=== PATIENT | female | born 1985 | race Asian ===

== ENCOUNTER 2018-05-27 23:22 | Emergency (ER) | payer BC ==
[2018-05-28 00:20] LABS: CHLORIDE,CL 106 mmol/L (98-107); SODIUM,NA 141 mmol/L (136-145)
[2018-05-28 00:21] LABS: ANION GAP 13.8 mmol/L (10-20)
[2018-05-28] MEDS ORDERED: Take Home: Sulfamethoxazole/Trimethoprim 800-160 MG Tab, 2 Tab Pack PO ONE (00:48)
--- NOTE | 2018-05-28 06:28 | EDM.PDOC ---
ED HPI GENERAL MEDICAL PROBLEM - General Chief Complaint: Chest Pain Stated Complaint: hypertension, chest pain Time Seen by Provider: 05/27/18 23:30 Source of Information: Reports: Patient History Limitations: Reports: No Limitations - History of Present Illness INITIAL COMMENTS - FREE TEXT/NARRATIVE: Pt. presents to ER with complaints of myalgias, dysuria, and lower abdominal pain. States that the symptoms started today. She also is experiencing dysuria and urinary frequency. Denies any fever or chills. She complains of L lateral and anterior chest wall pain, worse when she takes a deep breath. Denies any cough. No sore throat. No skin rashes. Denies any lightheadedness. No nausea, vomiting, or diarrhea. She has some mild lightheadedness. Onset: Today Onset Date: 05/27/18 Duration: Constant, Getting Worse Location: Reports: Chest, Generalized Quality: Reports: Ache Severity: Moderate Improves with: Reports: Rest Worsens with: Reports: Movement Context: Denies: Sick Contact, Trauma Associated Symptoms: Reports: Chest Pain, Fever/Chills, Weakness. Denies: Cough Chest Pain Score (Numeric/FACES): 4 - Related Data Allergies Allergy/AdvReac Type Severity Reaction Status Date / Time nitrofurantoin Allergy Other Verified 05/27/18 23:23 [From Macrobid] Home Meds: Home Meds . 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: Polycystic Ovaries Social & Family History - Tobacco Use Smoking Status *Q: Never Smoker ED ROS GENERAL - Review of Systems Review Of Systems: See Below Constitutional: Reports: Fever, Chills, Malaise, Fatigue HEENT: Reports: No Symptoms Respiratory: Reports: Pleuritic Chest Pain Cardiovascular: Reports: No Symptoms Endocrine: Reports: No Symptoms GI/Abdominal: Reports: Abdominal Pain : Reports: Dysuria, Frequency, Urgency Musculoskeletal: Reports: Joint Pain, Muscle Pain Skin: Reports: No Symptoms Neurological: Reports: No Symptoms Psychiatric: Reports: No Symptoms Hematologic/Lymphatic: Reports: No Symptoms Immunologic: Reports: No Symptoms ED EXAM, GENERAL - Physical Exam Exam: See Below Exam Limited By: No Limitations General Appearance: Alert, WD/WN, No Apparent Distress Nose: Normal Inspection, Normal Mucosa, No Blood Throat/Mouth: Normal Inspection, Normal Lips, Normal Teeth, Normal Gums, Normal Oropharynx, Normal Voice, No Airway Compromise Head: Atraumatic, Normocephalic Neck: Normal Inspection, Supple, Non-Tender, Full Range of Motion Respiratory/Chest: No Respiratory Distress, Lungs Clear, Normal Breath Sounds, No Accessory Muscle Use, Other (lateral and anterior chest tender to palpation) Cardiovascular: Normal Peripheral Pulses, Regular Rate, Rhythm, No Edema, No Gallop, No JVD, No Murmur, No Rub Peripheral Pulses: 3+: Radial (L), Radial (R) GI/Abdominal: Normal Bowel Sounds, Soft, Non-Tender, No Organomegaly, No Distention, No Abnormal Bruit, No Mass (Female) Exam: Deferred Rectal (Female) Exam: Deferred Back Exam: Normal Inspection, Full Range of Motion. No: CVA Tenderness (L), CVA Tenderness (R) Extremities: Normal Inspection, Normal Range of Motion, Non-Tender, No Pedal Edema, Normal Capillary Refill Neurological: Alert, Oriented, CN II-XII Intact, Normal Cognition, Normal Gait, Normal Reflexes, No Motor/Sensory Deficits Psychiatric: Normal Affect, Normal Mood Course - Vital Signs Last Recorded V/S: Last Vital Signs Temp 35.9 C 05/27/18 23:23 Pulse 90 05/27/18 23:23 Resp 21 H 05/27/18 23:23 BP 135/83 05/27/18 23:23 Pulse Ox 98 05/27/18 23:23 - Orders/Labs/Meds Orders: Active Orders 24 hr Category Date Time Status Dietary Supplements [RC] BIDMEALS Care 05/28/18 00:48 Active EKG Documentation Completion [RC] STAT Care 05/27/18 23:28 Active Chest 2V [CR] Stat Exams 05/27/18 23:46 Taken Labs: Laboratory Tests 05/27/18 05/27/18 05/27/18 Range/Units 23:48 23:48 23:48 WBC 9.2 (4.0-10.0) x10^3/uL RBC 5.00 (4.00-5.50) x10^6/uL Hgb 14.8 (12.0-16.0) g/dL Hct 43.1 (33.0-47.0) % MCV 86.2 (78.0-93.0) fL MCH 29.6 (26.0-32.0) pg MCHC 34.3 (32.0-36.0) g/dL RDW Coeff of [place] 12.5 (10.0-15.0) % Plt Count 311 (130-400) x10^3/uL Neut % (Auto) 69.6 (50.0-80.0) % Lymph % (Auto) 21.0 L (25.0-50.0) % [place] % (Auto) 7.0 (2.0-11.0) % Eos % (Auto) 2.1 (0.0-4.0) % Baso % (Auto) 0.3 (0.2-1.2) % PT 9.9 (9.6-11.4) SEC INR 0.9 L (2.0-3.5) D-Dimer, Quantitative (<=0.58) mg/LFEU Sodium 141 (136-145) mmol/L Potassium 3.8 (3.5-5.1) mmol/L Chloride 106 (98-107) mmol/L Carbon Dioxide 25 (21-32) mmol/L Anion Gap 13.8 (10-20) mmol/L BUN 10 (7-18) mg/dL Creatinine 0.9 (0.55-1.02) mg/dL Est Cr Clr Drug Dosing TNP Estimated GFR (MDRD) > 60 Glucose 84 (74-106) mg/dL Calcium 9.0 (8.5-10.1) mg/dL Corrected Calcium 9.24 (8.5-10.1) mg/dL Phosphorus 2.2 L (2.6-4.7) mg/dL Magnesium 2.0 (1.8-2.4) mg/dL Total Bilirubin 0.5 (0.2-1.0) mg/dL AST 17 (15-37) U/L ALT 32 (14-59) U/L Alkaline Phosphatase 88 (46-116) U/L Troponin I < 0.017 (<=0.056) ng/mL C-Reactive Protein 1.0 H (<=0.9) mg/dL Total Protein 8.2 (6.4-8.2) g/dL Albumin 3.7 (3.4-5.0) g/dL Globulin 4.5 Albumin/Globulin Ratio 0.82 Urine Color (YELLOW) Urine Appearance (CLEAR) Urine pH (5.0-8.0) Ur Specific [place] Urine Protein (NEGATIVE) mg/dL Urine Glucose (UA) (NEGATIVE) mg/dL Urine Ketones (NEGATIVE) mg/dL Urine Occult Blood (NEGATIVE) Urine Nitrite (NEGATIVE) Urine Bilirubin (NEGATIVE) Urine Urobilinogen (0.2) EU/dL Ur Leukocyte Esterase (NEGATIVE) Urine RBC (NOT SEEN) /HPF Urine WBC (NOT SEEN) /HPF Ur Squamous Epith Cells (NEGATIVE) /HPF Urine Bacteria (NEGATIVE) /HPF Urine Mucus (NEGATIVE) /LPF 05/27/18 05/28/18 Range/Units 23:48 00:20 WBC (4.0-10.0) x10^3/uL RBC (4.00-5.50) x10^6/uL Hgb (12.0-16.0) g/dL Hct (33.0-47.0) % MCV (78.0-93.0) fL MCH (26.0-32.0) pg MCHC (32.0-36.0) g/dL RDW Coeff of [place] (10.0-15.0) % Plt Count (130-400) x10^3/uL Neut % (Auto) (50.0-80.0) % Lymph % (Auto) (25.0-50.0) % [place] % (Auto) (2.0-11.0) % Eos % (Auto) (0.0-4.0) % Baso % (Auto) (0.2-1.2) % PT (9.6-11.4) SEC INR (2.0-3.5) D-Dimer, Quantitative < 0.19 (<=0.58) mg/LFEU Sodium (136-145) mmol/L Potassium (3.5-5.1) mmol/L Chloride (98-107) mmol/L Carbon Dioxide (21-32) mmol/L Anion Gap (10-20) mmol/L BUN (7-18) mg/dL Creatinine (0.55-1.02) mg/dL Est Cr Clr Drug Dosing Estimated GFR (MDRD) Glucose (74-106) mg/dL Calcium (8.5-10.1) mg/dL Corrected Calcium (8.5-10.1) mg/dL Phosphorus (2.6-4.7) mg/dL Magnesium (1.8-2.4) mg/dL Total Bilirubin (0.2-1.0) mg/dL AST (15-37) U/L ALT (14-59) U/L Alkaline Phosphatase (46-116) U/L Troponin I (<=0.056) ng/mL C-Reactive Protein (<=0.9) mg/dL Total Protein (6.4-8.2) g/dL Albumin (3.4-5.0) g/dL Globulin Albumin/Globulin Ratio Urine Color [place] H (YELLOW) Urine Appearance Clear (CLEAR) Urine pH 6.5 (5.0-8.0) Ur Specific [place] 1.010 Urine Protein 100 H (NEGATIVE) mg/dL Urine Glucose (UA) 100 H (NEGATIVE) mg/dL Urine Ketones Trace H (NEGATIVE) mg/dL Urine Occult Blood Negative (NEGATIVE) Urine Nitrite Positive H (NEGATIVE) Urine Bilirubin Moderate H (NEGATIVE) Urine Urobilinogen 4.0 H (0.2) EU/dL Ur Leukocyte Esterase Large H (NEGATIVE) Urine RBC 0-5 (NOT SEEN) /HPF Urine WBC 0-5 (NOT SEEN) /HPF Ur Squamous Epith Cells Moderate H (NEGATIVE) /HPF Urine Bacteria Rare (NEGATIVE) /HPF Urine Mucus Not seen (NEGATIVE) /LPF Meds: Medications Discontinued Medications Generic Name Dose Route Start Last Admin Trade Name Freq PRN Reason Stop Dose Admin Trimethoprim/Sulfamethoxazole 2 packet 05/28/18 00:48 05/28/18 00:58 Take Home: Sulfameth/Trimet 800-160mg, 2 Pack PO 05/28/18 00:49 2 packet ONETIME ONE Administration Departure - Departure Time of Disposition: 00:58 Disposition: Home, Self-Care 01 Condition: Good Clinical Impression: UTI (urinary tract infection) - Discharge Information Instructions: Urinary Tract Infection, Adult Referrals: PCP,Unobtain [Primary Care Provider] - Forms: ED Department Discharge Additional Instructions: Bactrim DS 1 twice daily for 5 days Drink plenty of fluids tylenol and ibuprofen for discomfort Follow-up in clinic in 10-14 days - My Orders Last 24 Hours: My Active Orders 05/27/18 23:28 EKG Documentation Completion [RC] STAT 05/27/18 23:46 Chest 2V [CR] Stat 05/28/18 00:48 Dietary Supplements [RC] BIDMEALS - Assessment/Plan Last 24 Hours: My Active Orders 05/27/18 23:28 EKG Documentation Completion [RC] STAT 05/27/18 23:46 Chest 2V [CR] Stat 05/28/18 00:48 Dietary Supplements [RC] BIDMEALS Plan: Bactrim DS 1 twice daily for 5 days Drink plenty of fluids tylenol and ibuprofen for discomfort Follow-up in clinic in 10-14 days
--- NOTE | 2018-05-29 07:52 | CR ---
[id number] RAD/RAD Chest PA And Lateral EXAM: RAD Chest PA And Lateral CLINICAL DATA: CHEST PAIN COMPARISON: NO PREVIOUS SIMILAR EXAM IS AVAILABLE. FINDINGS: The lungs are clear. The cardiomediastinal contour is normal. The regional bones and soft tissues are unremarkable. IMPRESSION: NO ACUTE PROCESS. Ken Amaod MD 05/29/18 0749 Thank you for allowing us to participate in the care of your patient.
== END 2018-05-28 00:58 | disposition home or self-care (01) ==
LOC: VM.ED 23:22
DX: N39.0 Urinary tract infection, site not specified (principal)
CPT/HCPCS: 36415; 71046; 80053; 81001; 83735; 84100; 84484; 85025; 85379; 85610; 86140; 87086; 87088; 87804; 87804-59; 99285; A9270-GY

== ENCOUNTER 2018-07-22 12:48 | Emergency (ER) | payer BC ==
[2018-07-22] MEDS ORDERED: Sodium Chloride 0.9% 10 ML Syringe FLUSH PRN (13:12)
--- NOTE | 2018-07-22 13:18 | EDM.PDOC ---
ED HPI GENERAL MEDICAL PROBLEM - General Chief Complaint: Chest Pain Stated Complaint: chest pain Time Seen by Provider: 07/22/18 13:00 Source of Information: Reports: Patient - History of Present Illness INITIAL COMMENTS - FREE TEXT/NARRATIVE: Patient comes in the emergency department with complaint of chest pain. Patient states the chest pain started approximately yesterday. She has has intermittent chest pain over the course of last few months her last episode where she had cardiac workup was back in May. She did see her primary care provider yesterday and asked for cardiac workup he did do cholesterol lipid and regular labs. She did discuss with him at the time. She was having chest pain however no further actions was taken. Patient comes in today stating that her chest pain has progressed and intensified significantly this morning around 7 AM. She states it hurts more when she moves with that she states that the chest pain is on the left side of the chest and radiates up to the left shoulder. She denies any shortness of breath, nausea, vomiting, or swelling in lower extremities. Patient states that she has been unable to find any relief since this morning. Prior to today she states that she would get relief if she would lay down and rest. Go away on its own. Patient feels she is able to handle stress fairly well and is able to get her mind relax. She's never been worked up for having anxiety in the past. Onset: Sudden, Gradual Quality: Reports: Dull, Pressure Severity: Mild Improves with: Reports: Immobilization Worsens with: Reports: Movement Associated Symptoms: Reports: No Other Symptoms Chest Pain Score (Numeric/FACES): 5 - Related Data Allergies Allergy/AdvReac Type Severity Reaction Status Date / Time nitrofurantoin Allergy Other Verified 05/27/18 23:23 [From Macrobid] Home Meds: Home Meds . 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 Ovaries ED ROS GENERAL - Review of Systems Review Of Systems: See Below Constitutional: Reports: No Symptoms HEENT: Reports: No Symptoms Respiratory: Reports: No Symptoms Cardiovascular: Reports: Chest Pain Endocrine: Reports: No Symptoms GI/Abdominal: Reports: No Symptoms : Reports: No Symptoms Musculoskeletal: Reports: No Symptoms Skin: Reports: No Symptoms Neurological: Reports: No Symptoms Psychiatric: Reports: No Symptoms Hematologic/Lymphatic: Reports: No Symptoms Immunologic: Reports: No Symptoms ED EXAM, GENERAL - Physical Exam Exam: See Below Exam Limited By: No Limitations General Appearance: Alert, WD/WN, No Apparent Distress Head: Atraumatic, Normocephalic Neck: Normal Inspection, Supple, Non-Tender, Full Range of Motion Respiratory/Chest: No Respiratory Distress, Lungs Clear, Normal Breath Sounds, No Accessory Muscle Use, Chest Non-Tender Cardiovascular: Normal Peripheral Pulses, Regular Rate, Rhythm Extremities: Normal Inspection, Normal Range of Motion, Normal Capillary Refill Neurological: Alert, Oriented, Normal Gait Psychiatric: Normal Affect, Normal Mood Skin Exam: Warm, Dry, Intact, Normal Color Course - Vital Signs Last Recorded V/S: Last Vital Signs Temp 37.6 C 07/22/18 13:06 Pulse 92 07/22/18 13:06 Resp 18 07/22/18 13:06 BP 150/94 H 07/22/18 13:06 Pulse Ox 99 07/22/18 13:06 - Orders/Labs/Meds Orders: Active Orders 24 hr Category Date Time Status Cardiac Monitoring [RC] . DIRECTED Care 07/22/18 13:12 Active EKG Documentation Completion [RC] STAT Care 07/22/18 13:12 Active COMPREHENSIVE METABOLIC PN,CMP [CHEM] Stat Lab 07/22/18 13:00 Received PRO B-TYPE NATRIUR PEPT,BNPPRO [CHEM] Stat Lab 07/22/18 13:00 Received TROPONIN I [CHEM] Stat Lab 07/22/18 13:00 Received Sodium Chloride 0.9% [Saline Flush] Med 07/22/18 13:12 Active 10 ml FLUSH ASDIRECTED PRN Peripheral IV Insertion Adult [OM.PC] Stat Oth 07/22/18 13:12 Ordered Medication Orders Sodium Chloride (Saline Flush) 10 ml FLUSH ASDIRECTED PRN PRN Reason: Keep Vein Open Labs: Laboratory Tests 07/22/18 Range/Units 13:00 WBC 10.4 H (4.0-10.0) x10^3/uL RBC 5.02 (4.00-5.50) x10^6/uL Hgb 14.8 (12.0-16.0) g/dL Hct 42.8 (33.0-47.0) % MCV 85.3 (78.0-93.0) fL MCH 29.5 (26.0-32.0) pg MCHC 34.6 (32.0-36.0) g/dL RDW Coeff of [place] 12.4 (10.0-15.0) % Plt Count 343 (130-400) x10^3/uL Neut % (Auto) 59.6 (50.0-80.0) % Lymph % (Auto) 30.5 (25.0-50.0) % [place] % (Auto) 7.2 (2.0-11.0) % Eos % (Auto) 2.4 (0.0-4.0) % Baso % (Auto) 0.3 (0.2-1.2) % Meds: Medications Generic Name Dose Route Start Last Admin Trade Name Freq PRN Reason Stop Dose Admin Sodium Chloride 10 ml 07/22/18 13:12 Saline Flush FLUSH ASDIRECTED PRN Keep Vein Open Discontinued Medications Generic Name Dose Route Start Last Admin Trade Name Freq PRN Reason Stop Dose Admin Hydroxyzine HCl 50 mg 07/22/18 13:11 07/22/18 13:31 Vistaril IM 07/22/18 13:12 50 mg ONETIME ONE Administration Departure - Departure Time of Disposition: 14:05 Disposition: Home, Self-Care 01 Condition: Good Clinical Impression: Costochondral chest pain, Anxiety Instructions: Costochondritis, [id number], Panic Attack Forms: ED Department Discharge Additional Instructions: 1. rest 2. increase water intake 3. Can take Tylenol and ibuprofen as needed for discomfort 4. follow up with PCP if continues may need to look at intermediate medication management 5. Activity and diet as tolerated 6. Call with any questions or concerns. - My Orders Last 24 Hours: My Active Orders 07/22/18 13:00 COMPREHENSIVE METABOLIC PN,CMP [CHEM] Stat PRO B-TYPE NATRIUR PEPT,BNPPRO [CHEM] Stat TROPONIN I [CHEM] Stat 07/22/18 13:12 Cardiac Monitoring [RC] . DIRECTED EKG Documentation Completion [RC] STAT Sodium Chloride 0.9% [Saline Flush] 10 ml FLUSH ASDIRECTED PRN Peripheral IV Insertion Adult [OM.PC] Stat - Assessment/Plan Last 24 Hours: My Active Orders 07/22/18 13:00 COMPREHENSIVE METABOLIC PN,CMP [CHEM] Stat PRO B-TYPE NATRIUR PEPT,BNPPRO [CHEM] Stat TROPONIN I [CHEM] Stat 07/22/18 13:12 Cardiac Monitoring [RC] . DIRECTED EKG Documentation Completion [RC] STAT Sodium Chloride 0.9% [Saline Flush] 10 ml FLUSH ASDIRECTED PRN Peripheral IV Insertion Adult [OM.PC] Stat Assessment:: 1. chest pain Plan: 1. Labs completed in ER 2. X-ray completed in ER 3. EKG completed in ER 4. Hydroxyzine IM given in ER. 5. All discomfort is gone after hydroxyzine given. 6. Education regarding follow up, and activity and diet given 7. All questions or concerns addressed prior to discharge
[2018-07-22] MEDS: hydrOXYzine HCl 50 MG/ML SDV IM ONE (13:31)
--- NOTE | 2018-07-22 13:57 | CR ---
[id number] RAD/RAD Chest PA or AP 1V EXAM: FRONTAL CHEST INDICATION: Chest pain. COMPARISON: May 27, 2018. DISCUSSION: The heart and lungs are normal in appearance. IMPRESSION: 1. Negative exam. Marcel Hankins MD 07/22/18 [id number] Thank you for allowing us to participate in the care of your patient.
[2018-07-22 14:01] LABS: ANION GAP 18.5 mmol/L (10-20); CHLORIDE,CL 103 mmol/L (98-107); SODIUM,NA 143 mmol/L (136-145)
== END 2018-07-22 14:12 | disposition home or self-care (01) ==
LOC: VM.ED 12:48
DX: M94.0 Chondrocostal junction syndrome [Tietze] (principal); F41.9 Anxiety disorder, unspecified; Z88.1 Allergy status to other antibiotic agents; Z88.8 Allergy status to other drugs, medicaments and biological substances
CPT/HCPCS: 71045; 80053; 83880; 84484; 85025; 93005; 96372; 99285; J3410